=== PATIENT | female | born 1955 | race Caucasian/White ===

== ENCOUNTER 2016-09-26 11:02 | Inpatient (IN) | payer OTHER, MEDICARE ==
[~2016-09-26] VITALS: Ht 177.8 cm; Wt 118.6 kg
[2016-09-27] MEDS ORDERED: ENOX40P SQ (10:29)
[2016-09-27] MEDS ORDERED: VITACAP7 PO (10:29)
[2016-09-27] MEDS ORDERED: MULT1TAB84 PO (10:29)
[2016-09-27] MEDS ORDERED: CALCCHW9 CHEW (10:29)
[2016-09-27] MEDS ORDERED: LEVO50TA4 PO (10:29)
[2016-09-27] MEDS ORDERED: GABA600T PO (10:29)
[2016-09-27] MEDS ORDERED: FISH1000 PO (10:29)
[2016-09-27] MEDS ORDERED: CHOL100025 PO (10:29)
[2016-09-27] MEDS ORDERED: VITA400C5 PO (10:29)
[2016-09-27] MEDS ORDERED: BACL10TA PO (10:29)
[2016-09-27] MEDS ORDERED: LOVA40TA PO (10:29)
[2016-09-27] MEDS ORDERED: BACTOIN EACH NARE (10:29)
[2016-09-27] MEDS ORDERED: ATEN25TA PO (10:29)
[2016-09-27] MEDS ORDERED: LISI2.5T3 PO (10:29)
[2016-09-27] MEDS ORDERED: OMEP20TA PO (10:29)
[2016-09-27] MEDS ORDERED: DIPH1TAB36 PO (10:29)
[2016-10-01] MEDS ORDERED: ACETAMINOPHEN 1000 MG/100 ML VIAL IV ONE (06:56)
[2016-10-01 07:00] VITALS: BP 137/72; PULSE 65; RESP 16; TEMP 98.2; O2SAT 96
[2016-10-01] MEDS: POVIDONE IODINE 7.5% SCRUB 118 ML BOTTLE TOP SCH (07:20)
[2016-10-01] MEDS: CHLORHEXIDINE GLUCONATE 4% SOLN 120 ML BTL TOP SCH (07:20)
[2016-10-01] MEDS ORDERED: HYDR-3288 PO (07:23)
[2016-10-01] MEDS ORDERED: XARE10TA PO (07:24)
[2016-10-01] MEDS ORDERED: ZOLPIDEM TARTRATE 5 MG TAB PO PRN (07:30)
[2016-10-01] MEDS ORDERED: BISACODYL 10 MG SUPP PR PRN (07:30)
[2016-10-01] MEDS ORDERED: NALOXONE HCL 0.4 MG/ML AMP IV PRN (07:30)
[2016-10-01] MEDS ORDERED: ONDANSETRON HCL 4 MG/2 ML VIAL IVP PRN (07:30)
[2016-10-01] MEDS ORDERED: diphenhydrAMINE HCL 50 MG/ML VIAL IV PRN (07:30)
[2016-10-01] MEDS ORDERED: SODIUM CHLORIDE 0.9% FLUSH 5 ML FLUSH IVF PRN (07:30)
[2016-10-01] MEDS ORDERED: ACETAMINOPHEN/HYDROcodone 325 MG/7.5 MG TAB PO PRN (07:30)
[2016-10-01] MEDS ORDERED: Post-op Orders (for Pharmacy) MISC XX ONE (07:30)
[2016-10-01] MEDS ORDERED: ALUMINUM/MAGNESIUM/SIMETH 30 ML CUP PO PRN (07:30)
[2016-10-01] MEDS ORDERED: MAGNESIUM HYDROXIDE SUSP 30 ML CUP PO PRN (07:30)
[2016-10-01] MEDS ORDERED: MIDAZOLAM HCL 5 MG/5 ML VIAL ONE (07:58)
[2016-10-01] MEDS ORDERED: FAMOTIDINE 20 MG/2 ML VIAL ONE (07:58)
[2016-10-01] MEDS ORDERED: VANCOMYCIN 1000 MG/NS 250 ML (for <70 kg) IV SCH ×2 (08:00)
[2016-10-01] MEDS ORDERED: ceFAZolin 2 GM PREMIX 50 ML IV SCH (08:00)
[2016-10-01] MEDS ORDERED: METOPROLOL TARTRATE 25 MG TAB PO PRN (08:00)
[2016-10-01] MEDS ORDERED: INSULIN HUMAN REGULAR 1,000 UNITS/10 ML VIAL SQ PRN (08:00)
[2016-10-01] MEDS ORDERED: TRANEXAMIC ACID IV SCH (08:00)
[2016-10-01] MEDS ORDERED: EXPAREL PERI-ARTICULAR INJECTION (TOTAL VOL. 60 ML) NB SCH ×2 (08:00)
[2016-10-01] MEDS ORDERED: SODIUM CHLORIDE 0.9% IV SCH (08:00)
[2016-10-01] MEDS ORDERED: SODIUM CHLORID 0.9% 500 ML IV SCH (08:00)
[2016-10-01] MEDS ORDERED: ROPIVACAINE PERI-ARTICULAR INJECTION. PERIART SCH ×5 (08:00)
[2016-10-01] MEDS ORDERED: LACTATED RINGER'S 1000 ML IV SCH (08:00)
[2016-10-01] MEDS ORDERED: DEXAMETHASONE SOD PHOS 20 MG/5 ML VIAL IV PRN (08:00)
[2016-10-01] MEDS ORDERED: GENTAMICIN SULFATE 80 MG/2 ML VIAL ONE ×2 (08:28→10:18)
[2016-10-01] MEDS ORDERED: MULTIVITAMINS/MINERALS THERAPEUTIC TAB PO SCH (09:30)
[2016-10-01] MEDS ORDERED: PILL SPLITTER OTHER PRN (09:30)
[2016-10-01] MEDS: TRANEXAMIC PERI-ARTICULAR 3,000 MG/NS 100 ML P-ARTICULR SCH ×2 (09:50)
[2016-10-01] MEDS ORDERED: CHLORHEXIDINE GLUCONATE 2 % 1 PACK (2 CLOTHS) TOP SCH (11:15)
[2016-10-01] MEDS ORDERED: VANCOMYCIN 1000 MG/NS 250 ML IV SCH ×2 (11:15)
[2016-10-01] MEDS ORDERED: DO NOT ADM ANY ANTICOAGULANT DRUGS XX PRN (11:15)
[2016-10-01] MEDS ORDERED: MUPIROCIN 2% OINT 1 APPLIC/GM SYR NASAL SCH (11:15)
[2016-10-01] MEDS ORDERED: POVIDONE IODINE 5% (ANTISEPSIS KIT) 4 APPLICATIONS EACH NARE SCH (11:15)
[2016-10-01] MEDS ORDERED: fentaNYL CITRATE 250 MCG/5 ML AMP ONE (11:16)
[2016-10-01] MEDS ORDERED: *morphine SULFATE 8 MG/ML PERIprocedure ONLY ONE ×3 (11:37→12:43)
--- NOTE | 2016-10-01 12:07 | RADRPT ---
EXAM DATE/TIME: 10/01/2016 11:40 [place] COMPARISON: No previous studies available for comparison. INDICATIONS : Post op right knee surgery MEDICAL HISTORY : None. SURGICAL HISTORY : None. ENCOUNTER: Initial ACUITY: 1 day PAIN SCORE: 6/10 LOCATION: Right knee FINDINGS: AP and lateral views of the knee following arthroplasty reveals a prosthesis in anatomic alignment. F racture is not appreciated. Surgical drain is evident CONCLUSION: Status post total knee arthroplasty. Guillermo Souza MD FACR Board Certified Radiologist. This report was verified electronically.
[2016-10-01] MEDS ORDERED: BUPIVACAINE LIPOSOME PF 1.3% 20 ML VIAL ONE (12:46)
[2016-10-01] MEDS ORDERED: DEXAMETHASONE SOD PHOS PF 10 MG/ML VIAL IV ONE (12:46)
[2016-10-01] MEDS: BACLOFEN 10 MG TAB PO SCH ×3 (13:00→18:00)
[2016-10-01] MEDS: GABAPENTIN 300 MG CAP PO SCH ×3 (13:00→18:00)
--- NOTE | 2016-10-01 13:03 | MP ---
cc: TC BRADY M.D. DATE OF SURGERY 10/01/2016 PREOPERATIVE DIAGNOSIS Right knee osteoarthritis. POSTOPERATIVE DIAGNOSES Right knee osteoarthritis. PROCEDURE Right total knee arthroplasty. SURGEON Dr. Tc Brady BUTTON MAKER Rangel Harrison PA-C ANESTHESIA Spinal with adductor canal block. ESTIMATED BLOOD LOSS 100 cc. COMPLICATIONS None. IMPLANTS USED DePuy Attune size 6 posterior stabilized femoral component, size 5 rotating platform tibial baseplate, size 35-mm patella, size 5-mm polyethylene tibial insert. JUSTIFICATION This patient is a 61-year-old female with a history of severe end-stage osteoarthritis involving the right knee. She has severe disabling pain with standing, walking, ambulation, weightbearing activities and even severe pain at rest. She has failed greater than three months of nonoperative conservative treatment to include medication therapy, injections, ambulatory assistive aids, home exercise program, weight loss attempts. X-rays of the right knee reveal severe end-stage osteoarthritis with [id number] joint space narrowing, subchondral sclerosis, subchondral cysts, osteophyte formation and varus deformity. The patient was counseled as to his risks, benefits and alternatives to a total knee arthroplasty. The risks were discussed to include but are not limited to anesthesia, bleeding, infection, damage to nerves, blood vessels, pain, stiffness, failure of the components, blood clots, pulmonary embolism and even . The patient's pain is severe. She favored the benefits over the risks and did wish to proceed with surgery. PROCEDURE IN DETAIL Written consent was obtained. The patient was identified by name and taken to the operating room, placed supine on the operating room table. Spinal anesthesia was administered as well as 2 grams of IV Ancef and 1 gram of IV vancomycin. A well-padded tourniquet was placed on the right thigh, the right lower extremity prepped and draped using isopropyl alcohol, Hibiclens solution and ChloraPrep solution. An Esmarch bandage was used to exsanguinate the right lower extremity and the tourniquet inflated to 250 mmHg. A longitudinal incision was made over the anterior aspect of the right knee and medial parapatellar arthrotomy incision was performed. The patella was everted. Patellar resection guide was used to resect approximately 8 mm of the patella. The size 35-mm guide was placed and three drill holes were placed and the 35-mm trial fit well. Attention was turned to the femur where an intramedullary guide davon was placed. The distal femoral guide was set to remove 10 mm of distal femur and this was set 5 degrees off the anatomic valgus axis alignment. An oscillating saw was used to perform the distal femoral cut. Attention was turned to the tibia where an extramedullary tibial guide was set to resect 5 mm off the lowest portion of the medial tibial plateau. The tibial guide was pinned in place and the tibial was cut was performed. Th 5-mm spacer block showed full extension. Attention was turned back to the femur where the AP sizing block measured a size 6. The anterior reference 3-degree external rotational guide was used to pin the size [address] The anterior, posterior and chamfer cuts were performed. A size 6 PCL box guide was pinned in place and PCL was boxed out with an oscillating saw. The medial and lateral meniscus remnants were removed as well as bone and soft tissue debris from the posterior portion of the knee. The size 5 tibial baseplate was pinned in place, the tibia was drilled and punched. Trial components were evaluated and final components cemented in place. With the 5-mm tibial insert, the leg could achieve full extension to 0 degrees and flexion to 140. No evidence of tibial lift-off. Varus-valgus balance appeared appropriate and symmetric. The tourniquet was deflated and Bovie cautery was used for hemostasis. The knee was thoroughly irrigated with sterile saline pulse lavage, antibiotic-impregnated solution. The arthrotomy incision was closed with #1 Vicryl suture, the subcutaneous layer closed with 2-0 Vicryl suture and the skin was closed with Dermabond. Sterile dressings were applied. The patient tolerated the procedure well. There was no intraoperative complication noted. Rangel Harrison, physician pediatric physician assistant certified, was present during the entire procedure to include patient positioning and the procedure itself. The medical necessity of a physician pediatric physician assistant was indicated in this case due to the complexity of the procedure itself. He assisted with appropriate manipulation of the leg and retraction of muscle, tendon, bone and neurovascular structures. He also assisted with both preparation of bone, cuts and also implantation of the prosthetic replacement. MD GAYLE Day/LINWOOD /10:50 AM 12:51 PM
[2016-10-01] MEDS ORDERED: *HYDROmorphone PF 1 MG VIAL PERIprocedural Use ONLY ONE (14:20)
[2016-10-01] MEDS ORDERED: PHENYLEPH/NS 1000 MCG/10 ML SYR IV ONE (14:33)
[2016-10-01] MEDS ORDERED: NEOSTIGMINE 3 MG/3 ML SYR IV ONE (14:33)
[2016-10-01] MEDS ORDERED: ONDANSETRON HCL 4 MG/2 ML VIAL IV PUSH ONE (14:33)
[2016-10-01] MEDS ORDERED: ePHEDrine/NS 50 MG/5 ML SYR IV ONE (14:33)
[2016-10-01] MEDS ORDERED: PROPOFOL 200 MG/20 ML AMP IV ONE (14:33)
[2016-10-01] MEDS ORDERED: LACTATED RINGER'S 1000 ML INJ 1,000 ML IV ONE (14:33)
[2016-10-01] MEDS: MORPHINE SULFATE 4 MG/ML INJ IV PUSH PRN ×2 (15:53→20:38)
--- NOTE | 2016-10-01 16:22 | PD.CONS ---
HPI Service [facility] Hospitalists Consult Requested By Ortho Reason for Consult Med management Primary Care Physician Eunice Carson M.D. Diagnoses: History of Present Illness 61 years old female with history of factor V Leiden coagulopathy, hypertension, hyperlipidemia, GERD, back pain admitted electively for right total knee arthroplasty, hospitalist requested to see patient for medical management. Patient stated her pain in the knees about 5 out of 10 but it's tolerable, no nausea or vomiting or chest pain or short of breath, she is able to wiggle her toes, patient is in the PACU, doing well postop, no abdominal pain diarrhea constipation dysuria urgency or frequency. She told me she quit smoking 6 years ago Review of Systems Other All 10 systems reviewed and was positive for what is mentioned in history of present illness otherwise negative Past Family Social History Allergies: Coded Allergies: Adhesives (Verified Allergy, Severe, Rash, 10/01/16) can take paper tape Coconut (Verified Allergy, Severe, Hives, 10/01/16) Darvocet-N 100 (Verified Allergy, Severe, Confusion, 10/01/16) Darvon (Verified Allergy, Severe, Confusion, 10/01/16) Past Medical History As in history of present illness Past Surgical History As in history of present illness Family History Her grandmother have a lung cancer Social History Quit smoking 6 years ago no alcohol or illicit drug abuse Physical Exam Vital Signs Vital Signs Date Time Temp Pulse Resp B/P Pulse Ox O2 Delivery O2 Flow Rate FiO2 10/01/16 14:00 3 16 128/63 97 Nasal Cannula 4 10/01/16 13:00 97.7 67 16 109/59 95 Nasal Cannula 4 10/01/16 12:45 73 16 129/58 94 Nasal Cannula 4 10/01/16 12:30 69 16 122/53 96 Nasal Cannula 4 10/01/16 12:15 74 16 113/48 96 Nasal Cannula 4 10/01/16 12:00 76 16 142/65 97 Nasal Cannula 4 10/01/16 11:45 79 16 149/58 97 Nasal Cannula 4 10/01/16 11:30 76 16 160/67 96 Nasal Cannula 4 10/01/16 11:15 74 16 142/70 96 Nasal Cannula 4 10/01/16 11:05 97.8 72 14 127/75 96 Nasal Cannula 4 10/01/16 07:00 98.2 65 16 137/72 96 Physical Exam GENERAL: This is a well-nourished, well-developed patient, in no apparent distress. SKIN: No rashes, ecchymoses or lesions. Cool and dry. HEAD: Atraumatic. Normocephalic. No temporal or scalp tenderness. EYES: Pupils equal round and reactive. Extraocular motions intact. No scleral icterus. No injection or drainage. ENT: Nose without bleeding, purulent drainage or septal hematoma. Throat without erythema, tonsillar hypertrophy or exudate. Uvula midline. Airway patent. NECK: Trachea midline. No JVD or lymphadenopathy. Supple, nontender, no meningeal signs. CARDIOVASCULAR: Regular rate and rhythm without murmurs, gallops, or rubs. RESPIRATORY: Clear to auscultation. Breath sounds equal bilaterally. No wheezes , rales, or rhonchi. GASTROINTESTINAL: Abdomen soft, non-tender, nondistended. No hepato-splenomegaly , or palpable masses. No guarding. MUSCULOSKELETAL: Left lower Extremities without clubbing, cyanosis, or edema. Right lower extremity in immobilizer postop NEUROLOGICAL: Awake and alert. Cranial nerves II through XII intact. Motor and sensory grossly within normal limits. Five out of 5 muscle strength in all muscle groups. Normal speech. Laboratory Laboratory Tests Test 10/01/16 07:35 Blood Type B POSITIVE Antibody Screen NEGATIVE Blood Bank Comment Imaging Last Impressions Knee X-Ray 10/01/16 0720 Signed Impressions: Service Date/Time: Saturday, October 01, 2016 11:40 - CONCLUSION: Status post total knee arthroplasty. Guillermo Souza MD Assessment and Plan Assessment and Plan 61 years old female admitted for Osteoarthritis right total knee arthroplasty: Doing well postop, DVT prophylaxis per ortho with Xarelto (patient was on it primarily for factor V Leiden coagulopathy), pain management per ortho History of factor V Leiden coagulopathy: Agree with continuing Xarelto Hypertension: Agree with continuing lisinopril and atenolol Hyperlipidemia: Lovastatin on hold, recommend resuming on discharge Hypothyroidism: Agree with continuing Synthroid Peripheral neuropathy: Agree with continuing gabapentin GERD agree with continuing PPI Protonix DVT prophylaxis on Xarelto Thank you for this consultation Fabian Estrella MD Oct 01, 2016 16:22
[2016-10-01 17:00] VITALS: BP 119/62; PULSE 89; RESP 19; TEMP 98.5; O2SAT 94
[2016-10-01 20:00] VITALS: BP 101/62; PULSE 92; RESP 17; TEMP 97.9; O2SAT 94
[2016-10-01] MEDS: CALCIUM/VITAMIN D 250 MG/125 U TAB PO SCH (20:36)
[2016-10-01] MEDS: ATENOLOL 25 MG TAB PO SCH (20:36)
[2016-10-01] MEDS: SODIUM CHLORIDE 0.9% FLUSH 5 ML FLUSH IVF SCH (20:36)
[2016-10-01] MEDS: PANTOPRAZOLE SOD 20 MG DELAYED RELEASE TAB PO SCH (20:36)
[2016-10-01] MEDS: SODIUM CHLOR 0.9% 1000 ML INJ 1,000 ML IV SCH (20:37)
[2016-10-02] VITALS (7 sets, daily range): BP systolic 98–129; BP diastolic 52–61; PULSE 86–94; RESP 16–18; TEMP 97.5–99.6; O2SAT 93–95
[2016-10-02] MEDS: ACETAMINOPHEN/HYDROcodone 325 MG/7.5 MG TAB PO PRN ×4 (02:48→21:04)
[2016-10-02] MEDS: LEVOTHYROXINE SODIUM 50 MCG TAB PO SCH ×2 (06:00→06:42)
[2016-10-02 06:05] LABS: HEMATOCRIT 31.9 % (35.0-46.0); MEAN CELL VOLUME 100.8 FL (80.0-100.0); MEAN CORPUSCULAR HEMOGLOBIN 34.3 PG (27.0-34.0); PLATELET COUNT 187 TH/MM3 (150-450); RED BLOOD COUNT 3.17 MIL/MM3 (4.00-5.30); RED CELL DISTRIBUTION WIDTH 14.7 % (11.6-17.2); REVIEW FLAG FINAL; WHITE BLOOD COUNT 14.4 TH/MM3 (4.0-11.0)
[2016-10-02 06:30] LABS: POTASSIUM 3.9 MEQ/L (3.5-5.1)
[2016-10-02] MEDS: SODIUM CHLOR 0.9% 1000 ML INJ 1,000 ML IV SCH ×3 (06:42→22:30)
[2016-10-02] MEDS: POVIDONE IODINE 7.5% SCRUB 118 ML BOTTLE TOP SCH (07:58)
[2016-10-02] MEDS: CHLORHEXIDINE GLUCONATE 4% SOLN 120 ML BTL TOP SCH (07:58)
[2016-10-02] MEDS: TRANEXAMIC PERI-ARTICULAR 3,000 MG/NS 100 ML P-ARTICULR SCH ×2 (08:00)
[2016-10-02] MEDS: LISINOPRIL 5 MG TAB PO SCH ×2 (09:00→09:45)
--- NOTE | 2016-10-02 09:43 | PD.ORT.PN ---
Subjective Post Op Day #: 1 Subjective Remarks painful but tolerable Objective Vitals Vital Signs Date Time Temp Pulse Resp B/P Pulse Ox O2 Delivery O2 Flow Rate FiO2 10/02/16 08:02 97.5 94 18 118/58 93 10/02/16 04:00 98.3 92 16 109/53 94 10/02/16 02:53 94 Nasal Cannula 2.50 10/02/16 00:00 99.1 86 16 98/52 94 10/01/16 20:00 97.9 92 17 101/62 94 10/01/16 17:00 98.5 89 19 119/62 94 10/01/16 16:30 97.6 72 16 109/63 96 Nasal Cannula 2 10/01/16 16:00 70 16 114/58 95 Nasal Cannula 2 10/01/16 15:00 71 16 115/67 96 Nasal Cannula 2 10/01/16 14:10 97.5 72 16 118/65 95 Nasal Cannula 2 10/01/16 14:00 3 16 128/63 97 Nasal Cannula 4 10/01/16 13:00 97.7 67 16 109/59 95 Nasal Cannula 4 10/01/16 12:45 73 16 129/58 94 Nasal Cannula 4 10/01/16 12:30 69 16 122/53 96 Nasal Cannula 4 10/01/16 12:15 74 16 113/48 96 Nasal Cannula 4 10/01/16 12:00 76 16 142/65 97 Nasal Cannula 4 10/01/16 11:45 79 16 149/58 97 Nasal Cannula 4 10/01/16 11:30 76 16 160/67 96 Nasal Cannula 4 10/01/16 11:15 74 16 142/70 96 Nasal Cannula 4 10/01/16 11:05 97.8 72 14 127/75 96 Nasal Cannula 4 I/O 10/01/16 10/01/16 10/01/16 10/02/16 10/02/16 10/02/16 07:00 15:00 23:00 07:00 15:00 23:00 Intake Total 1100 ml 560 ml 360 ml Output Total 100 ml 850 ml 1200 ml Balance 1000 ml -290 ml -840 ml Intake Oral 360 ml 360 ml IV Total 200 ml Other 1100 ml Output Urine Total 100 ml 850 ml 1200 ml # Bowel Movements 0 0 Result Diagram: 10/02/1633 10/02/16532 Objective Remarks in chair, nad dressing c/d/i sherwin rodas nvi Assessment & Plan Ortho Post Op Day #: 1 Problem List: Assessment and Plan s/p R TKA wbat daily dressing changes marquis d/c planning home with [facility] and pt rx in chart f/up dr. crawford 2 weeks Willy Harrison Oct 02, 2016 09:43
[2016-10-02] MEDS: ATENOLOL 25 MG TAB PO SCH ×2 (09:45→21:04)
[2016-10-02] MEDS: GABAPENTIN 300 MG CAP PO SCH ×3 (09:45→17:55)
[2016-10-02] MEDS: BACLOFEN 10 MG TAB PO SCH ×3 (09:45→17:55)
[2016-10-02] MEDS: NS 1000 ML IV SCH (09:46)
[2016-10-02] MEDS: RIVAROXABAN 10 MG TAB PO SCH (09:46)
[2016-10-02] MEDS: SODIUM CHLORIDE 0.9% FLUSH 5 ML FLUSH IVF SCH ×2 (09:46→21:05)
--- NOTE | 2016-10-02 09:46 | HHI.DCPOC ---
Discharge Care Plan Diagnosis: (1) Primary localized osteoarthrosis, lower leg Your Health Problems Are: Difficulty with ADL Goals to Promote Your Health * To prevent worsening of your condition and complications * To maintain your health at the optimal level Directions to Meet Your Goals Take your medications as prescribed Follow your dietary instruction Follow activity as directed Keep your appointments as scheduled Take your immunizations and boosters as scheduled If your symptoms worsen call your PCP, if no PCP go to Urgent Care Center or Emergency Room Smoking is Dangerous to Your Health. Avoid second hand smoke Call the 24-hour hour crisis hotline for domestic abuse at Willy Harrison Oct 02, 2016 09:46
--- NOTE | 2016-10-02 09:47 | HHI.FF ---
Face to Face Verification Diagnosis: (1) Primary localized osteoarthrosis, lower leg Physical Therapy Gait training, Safety evaluation, Transfer training, bed to chair Knee: Total knee, Protocol: Right, Full weight bearing Right LE Weight Bearing: WB as tolerated Nursing RN: 3 days/week x 2 weeks Nursing: Dressing changes Dressing Changes: Daily dressing change I have seen patient Irma Jenkins on 10/02/16. My clinical findings support the need for the requested home health care services because: Limited ability to care for self High risk of falls I certify that my clinical findings support that this patient is homebound because: Post-op weakness Unsteady gait/balance Willy Harrison Oct 02, 2016 09:47
[2016-10-02] MEDS ORDERED: CPMMACHINE (09:48)
[2016-10-02] MEDS ORDERED: WALKER WHEELS/F1 MIS (09:48)
[2016-10-02] MEDS ORDERED: MISC-163 (09:49)
--- NOTE | 2016-10-02 12:32 | HHI.PR ---
Subjective Remarks Patient doing good, no chest pain or short of breath or fever or chills Objective Vitals Vital Signs Date Time Temp Pulse Resp B/P Pulse Ox O2 Delivery O2 Flow Rate FiO2 10/02/16 08:02 97.5 94 18 118/58 93 10/02/16 04:00 98.3 92 16 109/53 94 10/02/16 02:53 94 Nasal Cannula 2.50 10/02/16 00:00 99.1 86 16 98/52 94 10/01/16 20:00 97.9 92 17 101/62 94 10/01/16 17:00 98.5 89 19 119/62 94 10/01/16 16:30 97.6 72 16 109/63 96 Nasal Cannula 2 10/01/16 16:00 70 16 114/58 95 Nasal Cannula 2 10/01/16 15:00 71 16 115/67 96 Nasal Cannula 2 10/01/16 14:10 97.5 72 16 118/65 95 Nasal Cannula 2 10/01/16 14:00 3 16 128/63 97 Nasal Cannula 4 10/01/16 13:00 97.7 67 16 109/59 95 Nasal Cannula 4 10/01/16 12:45 73 16 129/58 94 Nasal Cannula 4 I/O 10/01/16 10/01/16 10/01/16 10/02/16 10/02/16 10/02/16 07:00 15:00 23:00 07:00 15:00 23:00 Intake Total 1100 ml 560 ml 360 ml Output Total 100 ml 850 ml 1200 ml Balance 1000 ml -290 ml -840 ml Intake Oral 360 ml 360 ml IV Total 200 ml Other 1100 ml Output Urine Total 100 ml 850 ml 1200 ml # Bowel Movements 0 0 Result Diagram: 10/02/1633 10/02/16532 Objective Remarks GENERAL: This is a well-nourished, well-developed patient, in no apparent distress. SKIN: No rashes, warm and dry HEAD: Atraumatic. Normocephalic. EYES: Pupils equal round and reactive. Extraocular motions intact. No scleral icterus. ENT: Nose without bleeding, or drainage, Airway patent. NECK: Trachea midline. Supple CARDIOVASCULAR: Regular rate and rhythm without murmurs, gallops, or rubs. RESPIRATORY: Fair air entry bilaterally. No wheezes, rales, or rhonchi. GASTROINTESTINAL: Abdomen soft, non-tender, nondistended. Positive bowel sounds MUSCULOSKELETAL: Extremities without clubbing, cyanosis, or edema. Pedal pulses appreciated NEUROLOGICAL: Awake and alert. Moves all extremity. Normal speech.no focal neurological deficit A/P Assessment and Plan 61 years old female admitted for Osteoarthritis right total knee arthroplasty: Doing well postop, DVT prophylaxis per ortho with Xarelto (patient was on it primarily for factor V Leiden coagulopathy), pain management per ortho Leukocytosis WBC 14 K mostly stress reaction, monitor WBC, also check BMP in a.m. History of factor V Leiden coagulopathy: Agree with continuing Xarelto Hypertension: Agree with continuing lisinopril and atenolol Hyperlipidemia: Lovastatin on hold, recommend resuming on discharge Hypothyroidism: Agree with continuing Synthroid Peripheral neuropathy: Agree with continuing gabapentin GERD agree with continuing PPI Protonix DVT prophylaxis on Xarelto Fabian Estrella MD Oct 02, 2016 12:32
[2016-10-02] MEDS: MORPHINE SULFATE 4 MG/ML INJ IV PUSH PRN (16:19)
[2016-10-02] MEDS: CALCIUM/VITAMIN D 250 MG/125 U TAB PO SCH (21:04)
[2016-10-02] MEDS: MULTIVITAMINS/MINERALS THERAPEUTIC TAB PO SCH (21:04)
[2016-10-02] MEDS: DOCUSATE SODIUM 100 MG CAP PO SCH (21:04)
[2016-10-02] MEDS: PANTOPRAZOLE SOD 20 MG DELAYED RELEASE TAB PO SCH (21:04)
[2016-10-03] VITALS: BP 121/58; PULSE 92; RESP 16; TEMP 99.6; O2SAT 93
[2016-10-03] MEDS: ACETAMINOPHEN/HYDROcodone 325 MG/7.5 MG TAB PO PRN ×2 (03:53→08:41)
[2016-10-03] MEDS: LEVOTHYROXINE SODIUM 50 MCG TAB PO SCH (04:59)
[2016-10-03 06:23] LABS: HEMATOCRIT 30.5 % (35.0-46.0); MEAN CELL VOLUME 100.8 FL (80.0-100.0); MEAN CORPUSCULAR HEMOGLOBIN 34.6 PG (27.0-34.0); MEAN CORPUSCULAR HGB CONC 34.3 % (32.0-36.0); PLATELET COUNT 162 TH/MM3 (150-450); RED BLOOD COUNT 3.02 MIL/MM3 (4.00-5.30); RED CELL DISTRIBUTION WIDTH 15.4 % (11.6-17.2); REVIEW FLAG FINAL; WHITE BLOOD COUNT 10.9 TH/MM3 (4.0-11.0)
[2016-10-03 06:53] LABS: BICARBONATE 31.2 MEQ/L (21.0-32.0); POTASSIUM 3.5 MEQ/L (3.5-5.1)
[2016-10-03] MEDS: POVIDONE IODINE 7.5% SCRUB 118 ML BOTTLE TOP SCH (08:00)
[2016-10-03] MEDS: CHLORHEXIDINE GLUCONATE 4% SOLN 120 ML BTL TOP SCH (08:00)
[2016-10-03 08:02] VITALS: BP 106/54; PULSE 90; RESP 16; TEMP 99.7; O2SAT 95
[2016-10-03] MEDS: LISINOPRIL 5 MG TAB PO SCH (08:41)
[2016-10-03] MEDS: GABAPENTIN 300 MG CAP PO SCH (08:41)
[2016-10-03] MEDS: MULTIVITAMINS/MINERALS THERAPEUTIC TAB PO SCH (08:41)
[2016-10-03] MEDS: RIVAROXABAN 10 MG TAB PO SCH (08:41)
[2016-10-03] MEDS: DOCUSATE SODIUM 100 MG CAP PO SCH (08:41)
[2016-10-03] MEDS: BACLOFEN 10 MG TAB PO SCH (08:41)
[2016-10-03] MEDS: ATENOLOL 25 MG TAB PO SCH (08:42)
[2016-10-03] MEDS: SODIUM CHLORIDE 0.9% FLUSH 5 ML FLUSH IVF SCH (08:43)
--- NOTE | 2016-10-03 09:14 | PD.ORT.PN ---
Subjective Post Op Day #: 2 Subjective Remarks feeling better. ready to go home Objective Vitals Vital Signs Date Time Temp Pulse Resp B/P Pulse Ox O2 Delivery O2 Flow Rate FiO2 10/03/16 08:02 99.7 90 16 106/54 95 10/03/16 00:00 99.6 92 16 121/58 93 10/02/16 20:00 99.6 89 16 118/56 93 10/02/16 16:10 97.8 88 16 129/61 95 10/02/16 12:31 98.0 90 16 124/59 95 I/O 10/02/16 10/02/16 10/02/16 10/03/16 10/03/16 10/03/16 07:00 15:00 23:00 07:00 15:00 23:00 Intake Total 360 ml 860 ml 240 ml 240 ml Output Total 1200 ml Balance -840 ml 860 ml 240 ml 240 ml Intake Oral 360 ml 860 ml 240 ml 240 ml Output Urine Total 1200 ml # Voids 3 1 1 # Bowel Movements 0 0 0 0 Result Diagram: 10/03/16 0454 10/03/16 0454 Objective Remarks in chair, nad incision no erythema, no drainage neg homans nvi Assessment & Plan Ortho Post Op Day #: 2 Problem List: Assessment and Plan s/p R TKA wbat daily dressing changes xarelto d/c planning home with [facility] and pt - cleared for d/c today rx in chart f/up dr. crawford 2 weeks Willy Harrison Oct 03, 2016 09:14
--- NOTE | 2016-10-03 09:29 | HHI.PR ---
Subjective Remarks Doing well, sitting on the chair, no chest pain or short of breath or fever Plan for discharge home with home health care today Objective Vitals Vital Signs Date Time Temp Pulse Resp B/P Pulse Ox O2 Delivery O2 Flow Rate FiO2 10/03/16 08:02 99.7 90 16 106/54 95 10/03/16 00:00 99.6 92 16 121/58 93 10/02/16 20:00 99.6 89 16 118/56 93 10/02/16 16:10 97.8 88 16 129/61 95 10/02/16 12:31 98.0 90 16 124/59 95 I/O 10/02/16 10/02/16 10/02/16 10/03/16 10/03/16 10/03/16 07:00 15:00 23:00 07:00 15:00 23:00 Intake Total 360 ml 860 ml 240 ml 240 ml Output Total 1200 ml Balance -840 ml 860 ml 240 ml 240 ml Intake Oral 360 ml 860 ml 240 ml 240 ml Output Urine Total 1200 ml # Voids 3 1 1 # Bowel Movements 0 0 0 0 Result Diagram: 10/03/16 0454 10/03/16 0454 Objective Remarks GENERAL: This is a well-nourished, well-developed patient, in no apparent distress. SKIN: No rashes, warm and dry HEAD: Atraumatic. Normocephalic. EYES: Pupils equal round and reactive. Extraocular motions intact. No scleral icterus. ENT: Nose without bleeding, or drainage, Airway patent. NECK: Trachea midline. Supple CARDIOVASCULAR: Regular rate and rhythm without murmurs, gallops, or rubs. RESPIRATORY: Fair air entry bilaterally. No wheezes, rales, or rhonchi. GASTROINTESTINAL: Abdomen soft, non-tender, nondistended. Positive bowel sounds MUSCULOSKELETAL: Extremities without clubbing, cyanosis, or edema. Pedal pulses appreciated NEUROLOGICAL: Awake and alert. Moves all extremity. Normal speech.no focal neurological deficit A/P Assessment and Plan 61 years old female admitted for Osteoarthritis right total knee arthroplasty: Doing well postop, DVT prophylaxis per ortho with Xarelto (patient was on it primarily for factor V Leiden coagulopathy), pain management per ortho Leukocytosis WBC 14 K mostly stress reaction, results today History of factor V Leiden coagulopathy: Agree with continuing Xarelto Hypertension: Agree with continuing lisinopril and atenolol Hyperlipidemia: Lovastatin on hold, recommend resuming on discharge Hypothyroidism: Agree with continuing Synthroid Peripheral neuropathy: Agree with continuing gabapentin GERD agree with continuing PPI Protonix DVT prophylaxis on Xarelto Medically cleared for discharge per primary ortho today Fabian Estrella MD Oct 03, 2016 09:29
[2016-10-03 09:41] VITALS: RESP 18
[2016-10-03] MEDS: NS 1000 ML IV SCH (11:15)
[2016-10-03] MEDS: SODIUM CHLOR 0.9% 1000 ML INJ 1,000 ML IV SCH (12:00)
== END 2016-10-03 12:10 | disposition home health service (06) | DRG 470 ==
LOC: HSDI 10-01 06:00 → N06A 10-01 16:49
PROVIDERS: ADMIT Orthopaedic Surgery Sports Medicine; ATTEND Orthopaedic Surgery Sports Medicine
PROC: 3E0T3CZ (ICD-10-PCS; 2016-10-01)
PROC: 0SRC0J9 Replacement of Right Knee Joint with Synthetic Substitute, Cemented, Open Approach (ICD-10-PCS; principal; 2016-10-01 08:41)
DX: M17.11 Unilateral primary osteoarthritis, right knee (principal); D68.51 Activated protein C resistance; I10 Essential (primary) hypertension; K21.9 Gastro-esophageal reflux disease without esophagitis; E78.5 Hyperlipidemia, unspecified; M54.9 Dorsalgia, unspecified; E03.9 Hypothyroidism, unspecified; G62.9 Polyneuropathy, unspecified; E66.9 Obesity, unspecified; D72.829 Elevated white blood cell count, unspecified; F43.9 Reaction to severe stress, unspecified; Z68.37 Body mass index [BMI] 37.0-37.9, adult; Z87.891 Personal history of nicotine dependence
CPT/HCPCS: 73560; 80048; 85027; 86850; 86900; 86901; 94150; C1776; C9290; J0131; J0690; J1100; J1170; J1580; J2250; J2270; J2370; J2405; J2710; J3010; J3370; J7030; J7050; J7120; L1830